=== PATIENT | male | born 1970 | race Caucasian/White ===

== ENCOUNTER 2024-03-27 22:46 | Emergency (ER) | payer OTHER ==
[2024-03-27 22:57] VITALS: BP 154/93; PULSE 55; RESP 18; TEMP 98.8; BMI 25.0
[2024-03-27] MEDS ORDERED: morphine SULFATE 4 MG/ML VIAL ONE (23:15)
[2024-03-27] MEDS ORDERED: PANTOPRAZOLE SODIUM 40 MG VIAL ONE (23:16)
[2024-03-27] MEDS: morphine CARPU-JECT 4 MG/1 ML DISP.SYRIN IVPUSH ONE (23:37)
[2024-03-27] MEDS: SODIUM CHLORIDE 1,000 ML IV ONE (23:38)
[2024-03-27] MEDS: PANTOPRAZOLE SODIUM 40 MG VIAL IVPUSH ONE (23:39)
[2024-03-27] MEDS ORDERED: METOCLOPRAMIDE HCL INJECTION 10 MG/2 ML VIAL ONE (23:44)
[2024-03-27] MEDS: METOCLOPRAMIDE HCL INJECTION 10 MG/2 ML VIAL IVPUSH ONE (23:49)
[2024-03-28] MEDS ORDERED: HYDROmorphone HCl 2 MG/ML VIAL ONE
[2024-03-28] MEDS: HYDROmorphone HCl 2 MG/ML VIAL IVPB STA (00:01)
[2024-03-28] MEDS: HYOSCYAMINE SULFATE 0.125 MG *ODT PO ONE (00:05)
[2024-03-28 00:25] LABS: HEMATOCRIT 41.9 % (35.4-49); HEMOGLOBIN 14.1 GM/dL (11.7-16.9); MCH 29.4 pg (25.7-33.7); MCHC 33.5 g/dl (32.0-35.9); MEAN CELL VOLUME 87.8 fl (80-96); MEAN PLT VOLUME 10.8 fl (7.5-11.1); PLATELET COUNT 179 10^3/uL (134-434); RBC 4.78 M/mm3 (4.00-5.60); RDW 13.4 % (11.9-15.9); WHITE BLOOD COUNT 13.1 K/mm3 (4.0-10.0)
[2024-03-28 00:43] LABS: POTASSIUM 3.9 mmol/L (3.5-5.1)
[2024-03-28 00:45] LABS: ALBUMIN 4.2 g/dl (3.4-5.0); BLOOD UREA NITROGEN 15.3 mg/dL (7-18); CALCIUM 9.5 mg/dL (8.5-10.1)
[2024-03-28 00:48] LABS: CREATININE 1.2 mg/dL (0.55-1.3)
[2024-03-28 00:50] LABS: BILIRUBIN,TOTAL 0.7 mg/dL (0.2-1); TOT PROT 7.1 g/dl (6.4-8.2)
== END 2024-03-28 03:27 | disposition home or self-care (01) ==
LOC: FER 22:46
PROC: 3E033NZ Introduction of Analgesics, Hypnotics, Sedatives into Peripheral Vein, Percutaneous Approach (ICD-10-PCS; principal; 2024-03-27)
PROC: 3E033GC Introduction of Other Therapeutic Substance into Peripheral Vein, Percutaneous Approach (ICD-10-PCS; 2024-03-27)
PROC: 3E033GC Introduction of Other Therapeutic Substance into Peripheral Vein, Percutaneous Approach (ICD-10-PCS; 2024-03-27)
PROC: 3E033GC Introduction of Other Therapeutic Substance into Peripheral Vein, Percutaneous Approach (ICD-10-PCS; 2024-03-27)
PROC: 3E0337Z Introduction of Electrolytic and Water Balance Substance into Peripheral Vein, Percutaneous Approach (ICD-10-PCS; 2024-03-27)
DX: R10.84 Generalized abdominal pain (principal)
CPT/HCPCS: 36415; 74177-TC; 80053; 83605; 85027; 99285-25; Q9967